=== PATIENT | female | born 1995 | race Two or more races ===

== ENCOUNTER 2017-05-03 10:44 | Emergency (ER) | payer BC ==
[2017-05-03 11:42] LABS: URINE SOURCE CLEAN CATCH
[2017-05-03 12:10] LABS: URINE APPEARANCE CLEAR; URINE BILIRUBIN NEG (NEG); URINE BLOOD 2+ (NEG); URINE COLOR YELLOW; URINE GLUCOSE NEG (NEG); URINE KETONE NEG (NEG); URINE LEUKOCYTE ESTERASE 2+ (NEG); URINE NITRATE NEG (NEG); URINE PROTEIN TRACE (NEG); URINE SPECIFIC GRAVITY 1.018 (1.003-1.035)
[2017-05-03 12:14] LABS: CULTURE INDICATED? YES; URBCS1 AUWI 25-50 /[HPF] (0-2); URINE BACTERIA AUWI 1+ (NEGATIVE); URINE SQUAMOUS EPITHELIAL CELL OCC /[HPF]; UWBCS1 AUWI 50-100 (0-5)
== END 2017-05-03 12:41 | disposition home or self-care (01) ==
LOC: CED 10:44 → CFTX 10:44 → CED 11:31 → CFTX 12:41
PROVIDERS: Physician Assistant
DX: N39.0 Urinary tract infection, site not specified (principal); F17.200 Nicotine dependence, unspecified, uncomplicated
CPT/HCPCS: 81003; 84703; 87086; 87088; 99283